=== PATIENT | female | born 1970 | race Two or more races ===

== ENCOUNTER 2017-02-19 12:46 | Day surgery (SDC) | payer OTHER ==
[~2017-02-19] VITALS: Ht 157.5 cm; Wt 90.4 kg
[2017-02-19 14:45] VITALS: Ht 157.5 cm; Wt 90.4 kg
[2017-02-19 14:58] VITALS: BP 136/82; PULSE 56; RESP 18
[2017-02-19] MEDS ORDERED: MIDAZOLAM 1 MG/ML 2 ML INJ ONE (15:20)
[2017-02-19] MEDS ORDERED: PROPOFOL 20 ML ONE (15:20)
[2017-02-19] MEDS ORDERED: LIDOCAINE 2% (SDV) 5 ML INJ ONE (15:20)
[2017-02-19 16:20] VITALS: BP 131/74; PULSE 59; RESP 20
--- NOTE | 2017-02-20 03:25 | GILP ---
DATE OF PROCEDURE: 02/19/2017 PROCEDURE: Esophagogastroduodenoscopy with biopsies. BRIEF HISTORY AND INDICATIONS: The patient is being evaluated for abdominal pain and dyspepsia. PREMEDICATION: Monitored anesthesia care by anesthesiologist. SURGEON: Ольга Copeland MD. INSTRUMENT USED: Olympus panendoscopy TECHNIQUE: After informed consent, with the patient/relatives understanding the procedure, its indic ations, potential risks and complications, including but not limited to: allergic reaction, bleeding , perforation or infection, and after all pertinent questions were answered to the patients satisfac tion, the patient/relatives signed witnessed informed consent. Following this, premedication was administered slowly IV push under careful cardiovascular and respi ratory monitoring with pulse oximetry, automatic blood pressure and quality assurance monitor chassis. Once the sedative effect was achieved the patient was place in the left lateral decubitus, the panen doscope was introduced and advanced under visual control. FINDINGS: Careful examination of the upper gastrointestinal tract, both on insertion as well as wit hdrawal of the instrument disclosed the following findings: ESOPHAGUS: The mucosa of the entire esophagus appears within normal limits. There is no evidence of esophagitis, varices, neoplasm or stricture. No hiatal hernia identified. STOMACH: Upon entrance to the stomach air was insufflated, the gastric higgins distended normally. T here is moderate erythema and edema of the mucosa of the body and antrum of the stomach. Biopsies w ere obtained to rule out H. pylori infection. PYLORUS: The pylorus is patent and within normal limits. DUODENUM: The duodenal bulb is unremarkable. The second portion of the duodenum shows slight raymond ening of the villi. Biopsies were obtained to rule out celiac disease. The instrument was then withdrawn, the patient tolerated the procedure well and was transfer out of the endoscopy suite awake, and in good condition to continue recovery under observation. IMPRESSION: 1. Gastritis, rule out Helicobacter pylori infection, biopsies obtained. 2. Rule out celiac disease, biopsies obtained. PLAN: The patient will be treated with PPIs. Pathology will be reviewed as soon as available. Fur ther recommendation will depend on the patient's clinical course as well as review of biopsies. Dictated By: ОЛЬГА COPELAND MS/HEATHER Conf#: [id number] DID#: [id number] CC: ОЛЬГА COPELAND;*EndCC*
== END 2017-02-19 16:32 | disposition home or self-care (01) ==
LOC: GIL 12:46
PROVIDERS: ATTEND Internal Medicine Gastroenterology
DX: K29.50 Unspecified chronic gastritis without bleeding (principal); E11.9 Type 2 diabetes mellitus without complications; I10 Essential (primary) hypertension; E03.9 Hypothyroidism, unspecified; E66.9 Obesity, unspecified; Z68.36 Body mass index [BMI] 36.0-36.9, adult
CPT/HCPCS: 43239; 84703; 88305; 88312; J2250; Z7610